=== PATIENT | female | born 1980 | race Caucasian/White ===

== ENCOUNTER 2023-05-26 16:13 | Emergency (ER) | payer OTHER, SELFPAY ==
[2023-05-26 16:15] VITALS: BP 175/111; PULSE 81; RESP 18; TEMP 36.8; O2SAT 99; BMI 39.2
--- NOTE | 2023-05-26 16:50 | EDS_ITS ---
HPI History of Present Illness Chief Complaint: Ear Problem PFSH PFS Home Medications metoclopramide HCl 5 mg tablet (Reglan) 5 mg PO TID PRN PRN headache #21 tabs 05/26/23 [Rx Last Taken Unknown] Allergy/AdvReac Type Severity Reaction Status Date / Time No Known Allergies Allergy Verified 05/26/23 16:14 Social History Smoking Status: Never smoker EXAM Physical Exam Const Vital Signs: 05/26/23 16:15 Temperature 98.2 F Temperature Source Temporal Pulse Rate 81 Respiratory Rate 18 Blood Pressure 175/111 H Blood Pressure Mean 132 Pulse Ox 99 Oxygen Delivery Method Room Air [facility] [place] Narrative Medical decision making narrative: HISTORY OF PRESENT ILLNESS: 42-year-old female here for left ear pain. Notes ongoing on and off for years. Notes bleeding approximately hour ago. REVIEW OF SYSTEMS: Pertinent positives: Left ear pain Pertinent negatives: Trauma PHYSICAL EXAM: Nursing triage notes reviewed, Vital signs reviewed Constitutional: please see mdm HENT: MMM, no mastoid tenderness, no periauricular hematoma, TMs pearly ramirez and intact bilaterally no hyperemia, there is dried blood noted in the left external auditory meatus. Eyes: Pupils equal round and reactive to light, Extraocular muscles intact Neck: No stridor, no JVD, full neck ROM Skin: No rash or lesions noted Neurological: Alert and oriented x3, neuro exam at baseline, cranial nerves II through XII are intact. No pain with extraocular muscle movement. There is negative test of skew. 5 of 5 strength in upper and lower extremities in flexion extension. Intact sensation to light touch in upper and lower extremity dermatomes. No truncal or extremity ataxia. No dysdiadochokinesia. Normal gait. 2+ reflexes in upper and lower extremities. No meningeal signs. Negative Babinski. NIH of 0. MEDICAL DECISION MAKING: Chief Complaint: Ear pain External records reviewed: No recent ED visits or hospitalizations, recent James imaging of the head Factors affecting care: Chronic ear pain MDM Narrative: Was initially hypertensive otherwise hemodynamically stable, afebrile, nontoxic-appearing. No outward signs of infection or mass on exam. I considered the following differential diagnosis: Otitis media, otitis externa, mastoiditis, ear trauma TMJ syndrome, tic douloureux No clinical signs to suggest otitis media, otitis externa, mastoiditis. There is no ear trauma. No active bleeding. TM was pearly ramirez and intact bilaterally. I obtained a CT scan without any occult mass, abscess, bleeding. CT scan was negative. I suspect the patient suffering from a [id number]-[id number] inflammatory condition such as TMJ syndrome or neurologic addition such as tic douloureux. Did give her ENT and neurology follow-up to further evaluate as an outpatient. The patient and/or family, caregivers express understanding. The patient and/or family, caregivers agrees with the plan. Shared decision making: I will have a discussion with the patient and or visitors regarding risk/benefits of further testing or admission. They will be made aware of of the risk/benefits inherent in this decision they will be given the opportunity to voice understanding. Total critical care time today provided was at least 0 minutes. This excludes separately billable procedures. Critical care time (if documented) is secondary to the patient having high probability of clinically significant/life threatening deterioration in the patient's condition which required my urgent intervention. Impression: 1. Chronic ear pain 2. Headache Dispo: Discharge home Radiography Diagnostic Testing: Clinical Impression(s) from Imaging Studies Brain CT 05/26/23 17:21 IMPRESSION: Normal unenhanced CT scan of the brain. Electronically Signed: Elia Smith MD at 18:00 EST Reading Location ID and State: [facility] / [place] Tel , Service support , Discharge Plan Triage Chief Complaint: Ear Problem ED Provider: Boby Zhu Dx/Rx/DC Orders Instructions: ED Earache Without Infection (Adult), ED Headache, Tension, ED TMJ Syndrome, ED Trigeminal Neuralgia Prescriptions: New metoclopramide HCl [Reglan] 5 mg tablet 5 mg PO TID PRN PRN (Reason: headache) Qty: 21 0RF Primary Care Provider: Nikolay Benjamin Referrals: Elia Castellano MD [Med Staff - Active Staff] - Cristopher Palmer MD [Non-Staff] - Activity Restrictions/Additional Instructions: Thank you for trusting us with your care today! Please take Tylenol (2 pills, 650 mg), ibuprofen (2 pills, 400 mg) every 6 hours as needed for pain and fever control. Please take Reglan as needed for headache control. Please return to the emergency department if your symptoms change or worsen. Please follow with your primary care physician for further outpatient evaluation and management. Disposition Disposition: Home, Self Care Discharge Date/Time: 05/26/23 18:41
--- NOTE | 2023-05-26 17:21 | CT_ITS ---
STUDY: CT BRAIN WITHOUT CONTRAST REASON FOR EXAM: Female, 42 years old. headache RADIATION DOSAGE (If Supplied By Facility): CTDIvol = ( 44.99 ) mGy, DLP = ( 796.11 ) mGycm TECHNIQUE: Transaxial CT imaging of the brain was performed without administration of intravenous contrast material. Individualized dose optimization techniques were used for this CT. COMPARISON: No relevant priors. FINDINGS: Normal soft tissue structures. Normal calvarium. Normal size ventricles and extra-axial spaces for the patient''s age. Normal white matter tracts of the cerebral hemispheres. Normal basal ganglia and thalami. Normal brainstem. Normal cerebellum. There is no intracranial hemorrhage. There are no findings of an acute ischemic infarction. Normal visualized paranasal sinuses. CT/Brain/Head without Contrast IMPRESSION: Normal unenhanced CT scan of the brain. Electronically Signed: Elia Smith MD at 18:00 EST ,
[2023-05-26] MEDS: Metoclopramide 5 MG TABLET PO (17:52)
[2023-05-26] MEDS: Acetaminophen 325 MG Tablet 650 MG PO (17:52)
== END 2023-05-26 18:41 | disposition home or self-care (01) ==
LOC: ED 17:20
PROVIDERS: Emergency Provider Emergency Medicine; PCP Family Medicine; Referring Provider Emergency Medicine; Visit Provider Emergency Medicine
DX: H92.02 Otalgia, left ear (principal); G89.29 Other chronic pain; R51.9 Headache, unspecified
CPT/HCPCS: 70450; 99282